=== PATIENT | female | born 1995 | race African-American/Black ===

== ENCOUNTER 2023-12-27 18:33 | Inpatient (IN) | payer MEDICARE, OTHER, SELFPAY ==
[2023-12-27] VITALS (19 sets, daily range): BP systolic 87–119; BP diastolic 56–80; BMI 17.8
--- NOTE | 2023-12-27 10:59 | ED.GENMED ---
History of Present Illness
General
Chief Complaint: Generalized Pain
Source: patient
Exam Limitations: none
Time Seen by Provider: 12/27/23 10:50
Nursing documentation reviewed up to this point in time: agreed with
Travel History
Have you had any contact with someone who has COVID-19?: No
Do you have any symptoms of coronavirus? Fever > 100 degrees, chills, cough, shortness of breath, sore throat, loss of taste or smell, muscle aches, or headache?: No
History of Present Illness
History of Present Illness:
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 She reports for the past week she has had pain in her chest back and bilateral hip she currently
does not have any Dilaudid left. She is followed by [facility]. He feels mildly short of breath and describe her heart pounding when she walks. She denies any fevers.
Past History
Past History
ED Past Medical History: Psychiatric (Anxiety) and Other (Sickle cell, PE, functionally asplenic)
ED Past Surgical History: Cholecystectomy and Orthopedic (Left shoulder surgery)
Social History
Tobacco: Non-smoker
Alcohol: None
Personal: Single
Living: with family
Employment: Other
Family History
Family History: Other
Review of Systems
Review of Systems
Allergies reviewed?: Yes
All Other Systems: ROS reviewed and negative except as documented in HPI and ROS
Constitutional: Denies fever, fatigue or chills
EENT: Reports no symptoms
Respiratory: Reports trouble breathing
Cardiac: Reports chest pain
ABD/GI: Reports no symptoms; Denies nausea or vomiting
: Reports no symptoms
Musculoskeletal: Reports back pain and other (hip pain b/l )
Skin: Reports no symptoms
Neurological: Reports no symptoms
Psychiatric: Reports no symptoms
Phy Exam
General Physical Exam
General Presentation: no apparent distress
General age: appears stated age
General Skin: warm and dry
General Habitus: normal
General Mental: alert
Cardiovascular Exam
Cardiovascular Exam: tachycardia
Pulmonary Exam
Pulmonary Exam: lungs clear and no respiratory distress
Neurological Exam
Neurological Exam: alert and oriented x3
Thai Coma Scale
Eye Opening: Spontaneous
Verbal Response: Oriented
Motor Response: Obeys Commands
GCS Total Score: 15
Musculoskeletal Exam
Musculoskeletal Exam: full ROM
Skin Exam
Skin Exam: normal color and warm/dry
Psychiatric Exam
Psychiatric Exam: normal mood/affect
Course
Orders/Labs/Results
Orders:
Orders
12/27/23 09:32
ECG [Electrocardiogram (*1)] Urgent
Reason for Study: Chest Pain
EKG- Treatment ONCE
12/27/23 11:09
0.9% Sodium Chloride 1000 ml [Nss] 1,000 ml IV BOLUS
Oxygen Therapy [O2 Therapy] [RESP] Urgent
Nasal Cannula Liter Flow: 2 LPM
Nasal Cup Liter Flow: 2 LPM
Non-Rebreather Mask: No
Partial Rebreather: No
Titrate/Wean O2 to maintain O2 sat greater than (%): 99
12/27/23 11:10
Cardiac Monitoring- Treatment ONCE
HYDROmorphone [Dilaudid] 1 mg IV NOW STA
12/27/23 11:37
CBC/With Diff [Complete Blood Count/With Diff] Urgent
CMP [Comprehensive Metabolic Panel] Urgent
Reticulocyte Count Urgent
12/27/23 13:28
CR Chest - 2 Views Urgent
Comment:
Reason For Exam: SOB, sickle cell
12/27/23 13:46
HYDROmorphone [Dilaudid] 1 mg IV NOW STA
04/18/24 15:58
HYDROmorphone [Dilaudid] 1 mg IV NOW STA
Abnormal Lab Results
12/27/23
11:37
WBC 12.7 H 10^3/uL
(4.8-10.8)
RBC 2.40 L 10^6/uL
(4.20-5.40)
Hgb 7.7 L g/dL
(12.0-16.0)
Hct 20.6 L* %
(37.0-47.0)
MCH 32.1 H pg
(27.0-31.0)
MCHC 37.4 H g/dL
(33.0-37.0)
RDW 24.0 H %
(11.5-14.5)
Abs Immat Gran (auto) 0.2 H 10^3/uL
(0-0.05)
Absolute Neuts (auto) 7.3 H 10^3/uL
(1.4-6.5)
Absolute Monos (auto) 1.9 H 10^3/uL
(0.1-0.6)
Immature Gran % 1.5 H %
(0-0.5)
Monocytes % 14.5 H %
(1.7-9.3)
Retic Count 10.7 H %
(0.4-2.8)
Sodium 133 L mmol/L
(135-145)
Carbon Dioxide 19 L mmol/L
(22-30)
BUN 6 L mg/dl
(7-17)
Creatinine 0.5 L mg/dL
(0.6-1.0)
Total Bilirubin 2.7 H mg/dl
(0.2-1.3)
AST 43 H U/L
(14-36)
Total Protein 8.3 H g/dl
(6.3-8.2)
12/27/23 11:37
12/27/23 11:37
Vital Signs
Initial and Last Documented VS:
Initial Vital Signs
Temp Pulse Resp BP Pulse Ox
98.7 F 130 20 116/80 96
12/27/23 09:28 12/27/23 09:28 12/27/23 09:28 12/27/23 09:28 12/27/23 09:28
Last Documented Vital Signs
Temp Pulse Resp BP Pulse Ox
98.7 F 98 15 106/56 94
12/27/23 09:28 12/27/23 14:00 12/27/23 14:00 12/27/23 15:00 12/27/23 13:45
MDM/Problems Addressed
Differential Diagnosis Includes:
Not limited to sickle cell exacerbation
MDM/Problems Addressed:
Patient is a 28-year-old female history of sickle cell disease presents to the ER complaining of pain. Patient complains of pain to bilateral hips back and chest. Flynn mildly short of breath however did not appear in any acute distress though she
describes feeling very uncomfortable patient reports her current medicine, Dilaudid from pain management is backordered. She was given fluids and pain medication here in the ER. She is anemic at 7.7 with an elevated reticulocyte count of 10.7
Patient was given several doses of pain medication here in the ER but does still feel uncomfortable will require admission Case discussed with ED physician.
Will plan for admission.
*Radiology
Radiology exam reviewed: radiology read reviewed
*Pulse Oximetry
Patient hypoxic: no
*EKG
Interpreted by ED Provider?: Yes
Heart Rate: 116
Rate: tachycardiac
Rhythm: sinus
*Critical Care Note
Total Time (30-74mins, 75-104mins- exclusive of procedures): Not Applicable
Data Reviewed
Review of Other/Old Records Reveals: Discharge Summary
ED Attending Note
-
Portions of this chart may have been created with voice recognition software.� Occasional wrong word or��sound alike� substitutions may have occurred due to the inherent limitations of voice recognition software.
Discharge Plan
Departure
Patient Disposition: Admit
Date of Disposition: 12/27/23
Time of Disposition: 17:25
Admit to: Med/Surg
Admit to doctor: hospitalist
Presentation/result/management discussed w/ accepting MD/DO: Hospitalist
Patient with high blood pressure during this ER visit?: No
Condition: Fair
Covid-19: Not Applicable
Discharge Problem:
Sickle cell anemia with crisis
Prescriptions:
No Action
folic acid 1 mg Tablet
1 mg PO QPM
Xarelto 15 mg tablet
15 mg PO QPM
Patient Comments:
12/27/2023, per pt., patient gets this filled at a [facility] in [place]; called pharmacy and they have no record of her filling Xarelto.
hydromorphone [Dilaudid] 4 mg tablet
4 mg PO Q6HPRN PRN (Reason: moderate to severe pain)
Patient Comments:
12/27/2023, per pt., she has not taken this med. for a few weeks because it is out of stock.
Women's Multivitamin 18 mg-400 mcg- 500 mg-50 mcg Tablet
1 tab PO DAILY
acetaminophen [Tylenol Extra Strength] 500 mg Tablet
1,000 mg PO TIDPRN PRN (Reason: mild pain)
Referrals:
NONE,* [Family Provider] -
Interventions
Interventions:
*Risk Screen - Suicide Last Done: 12/27/23 10:56
*Neglect/Abuse Screening Last Done: 12/27/23 10:56
ED- Fall Risk Assessment Last Done: 12/27/23 10:57
*ED COVID-19 Vaccine History Last Done: 12/27/23 10:56
Discharge Date and Time
Print Language: ICELANDIC
[2023-12-27] MEDS: DILAUDID 1 MG IV ×3 (11:37→16:03)
[2023-12-27] MEDS: NSS 1000 IV (11:38)
--- NOTE | 2023-12-27 11:59 | PHANOTE ---
12/27/2023, med rec tech, spoke to pt. to obtain their med. history; per pt., she takes Xarelto 15 mg QPM but could not confirm with pharmacy records and pt. has no [facility] records.
[2023-12-27 12:38] LABS: ALT (SGPT) 15 U/L (0-35); AST (SGOT) 43 U/L (14-36); Albumin 4.9 g/dl (3.5-5.0); Alkaline Phosphatase 59 U/L (38-126); Blood Urea Nitrogen 6 mg/dl (7-17); Calcium 9.4 mg/dl (8.4-10.2); Carbon Dioxide 19 mmol/L (22-30); Chloride 106 mmol/L (98-107); Estimated Creatinine Clearance 107 ml/min; Glucose 93 mg/dl (70-99); Potassium 3.9 mmol/L (3.5-5.1); Sodium 133 mmol/L (135-145); Total Bilirubin 2.7 mg/dl (0.2-1.3); Total Protein 8.3 g/dl (6.3-8.2); eGFR > 60.00
[2023-12-27 12:42] LABS: % Basophils 1.4 % (0-2); % Immature Granulocytes 1.5 % (0-0.5); % Lymphocytes 23.5 % (20.5-51.1); % Monocytes 14.5 % (1.7-9.3); % Neutrophils 57.1 % (42.2-75.2); Absolute Basophils 0.2 10^3/uL (0-0.2); Absolute Eosinophils 0.3 10^3/uL (0-0.7); Absolute Immature Granulocytes 0.2 10^3/uL (0-0.05); Absolute Monocytes 1.9 10^3/uL (0.1-0.6); Absolute Neutrophils 7.3 10^3/uL (1.4-6.5); Hemoglobin 7.7 g/dL (12.0-16.0); Mean Corp Hgb Conc. 37.4 g/dL (33.0-37.0); Mean Corpuscular Hgb 32.1 pg (27.0-31.0); Mean Corpuscular Volume 85.8 fL (81.0-99.0); Mean Platelet Volume 9.6 fL (7.4-10.4); Nucleated Red Blood Cells % 3.2 %; Platelet Count 265 10^3/uL (130-400); Reticulocyte Count 10.7 % (0.4-2.8); White Blood Cell Count 12.7 10^3/uL (4.8-10.8)
[2023-12-27 12:45] LABS: Hematocrit 20.6 % (37.0-47.0)
[2023-12-27 13:52] LABS: Anisocytosis 1+; Hypochromasia 2+; Normal RBC Morphology No; Ovalocytes Slight; Polychromasia Slight; Sickled Red Blood Cells 1+; Target Cells Slight
--- NOTE | 2023-12-27 18:05 | HPS.HSE ---
Addendum entered and electronically signed by Ev Oropeza MD 12/27/23 18:12:
Patient states that she has been compliant with Xarelto and not missing any doses. However as per pharmacy intake technician when she tried calling the pharmacy, they had no record of her filling the Xarelto.
Original Note:
Family Physician
-
Family Physician: * NONE
Chief Complaint
-
body pain
History of Present Illness
28-year-old female past medical history of sickle cell disease, chronic opiate use, pulmonary embolism on Xarelto, presenting to the hospital for sickle cell crisis and body pains. She has been having pain in her chest, back and bilateral hips and
shortness of breath with exertion.
Patient normally takes Dilaudid 4 mg every 6 hours prescribed by her pain medicine doctor. Due to Dilaudid being on backorder she was not able to get Dilaudid during her last appointment a week ago. She has been taking Tylenol ibuprofen for pain.
She denies any fevers or chills or cough.
Patient did not tolerate hydroxyurea in the past due to side effects.
Medical History
Past Medical History
Past Medical History: Reports Other ( sickle cell disease, chronic opiate use, pulmonary embolism on Xarelto)
Past Surgical History: Reports Other (Cholecystectomy and Orthopedic (Left shoulder surgery))
Social History
Tobacco: Non-smoker
Alcohol: Occasional
Drug: None
Family History
Family History: Other (Mother with thalassemia trait father with sickle cell trait))
Allergies / Home Medications
Allergies reflects when Allergies were last updated in [employer].
Home Medications with original date entered in [employer]
Allergy/Medication List:
Allergies
Allergy/AdvReac Type Severity Reaction Status Date / Time
cefepime Allergy Hives Verified 12/27/23 09:32
vancomycin Allergy Hives Verified 12/27/23 09:32
seafood Allergy Tongue Uncoded 12/27/23 09:32
Swelling
Home Medications
folic acid 1 mg tablet 1 mg PO QPM Supplement 10/19/22
hydromorphone 4 mg tablet (Dilaudid) 4 mg PO Q6HPRN PRN moderate to severe pain 07/11/23
rivaroxaban 15 mg tablet (Xarelto) 15 mg PO QPM Blood Clot Prevention/Tx 07/11/23
[id number] 18 mg-FA 400 mcg-calcium 500 mg-vit K 50 mcg tablet (Women's Multivitamin) 1 tab PO DAILY Supplement 09/07/23
acetaminophen 500 mg tablet (Tylenol Extra Strength) 1,000 mg PO TIDPRN PRN mild pain 12/27/23
Review of Systems
-
History Source: Patient
A 12 point ROS was completed and negative except as noted: Yes
Constitutional: Reports No Symptoms
EENT: Reports No Symptoms
Respiratory: Reports See HPI
Cardiac: Reports See HPI
Abdomen/GI: Reports No Symptoms
: Reports No Symptoms
Musculoskeletal: Reports No Symptoms
Skin: Reports No Symptoms
Neurological: Reports No Symptoms
Endocrine: Reports No Symptoms
Hematologic/Lymphatic: Reports No Symptoms
Psych: Reports No Symptoms
Physical Exam
Vital Signs
Vital Signs
Temp Pulse Resp BP Pulse Ox
98.7 F 110 15 114/73 92
12/27/23 09:28 12/27/23 17:20 12/27/23 14:00 12/27/23 17:20 12/27/23 17:20
Physical Exam
General: Well Developed, Well Nourished and No Apparent Distress
HEENT: NormoCephalic, Moist mucous membranes and Atraumatic
Respiratory: Clear
Cardiac: S1/S2 and Regular Rhythm; No Murmur or Rub
GI: Soft, Non Tender, Non Distended and Normal Bowel Sounds; No Organomegaly
Rectal: Deferred by Provider
Musculoskeletal: No Clubbing, No Cyanosis and No Edema
Skin: No Rash
Neuro: Nonfocal/grossly intact
Laboratory Results
-
12/27/23 11:37
12/27/23 11:37
Laboratory Results
Total Bilirubin 2.7 mg/dl (0.2-1.3) H 12/27/23 11:37
AST 43 U/L (14-36) H 12/27/23 11:37
ALT 15 U/L (0-35) 12/27/23 11:37
Alkaline Phosphatase 59 U/L (38-126) 12/27/23 11:37
Data Reviewed
-
Lab Data: Labs Reviewed by me
Old Records: Reviewed
Impression/Plan
-
IMPRESSION:
PLAN:
# Sickle cell crisis
# Acute on chronic anemia from sickle cell
-EKG shows sinus tachycardia
-Chest x-ray shows no active cardiopulmonary disease
-Hemoglobin 7.7
-IV fluids
-2 units of blood
-Oxygen as needed
-Tylenol, Dilaudid for pain
-Continue folic acid
History of pulmonary embolism
-Continue Xarelto which she has been compliant with
Full code
DVT prophylaxis�Xarelto
Regular diet
[2023-12-27] MEDS: DILAUDID 0.5 MG IV (19:03)
[2023-12-27] MEDS: DILAUDID 2 MG IV (21:14)
[2023-12-28] VITALS (19 sets, daily range): BP systolic 93–123; BP diastolic 54–73
[2023-12-28] MEDS: DILAUDID 2 MG IV ×5 (00:50→13:31)
[2023-12-28] MEDS: NSS 1000 IV ×2 (04:13→13:38)
[2023-12-28 06:48] LABS: % Basophils 1.2 % (0-2); % Eosinophils 4.6 % (0-6); % Immature Granulocytes 1.3 % (0-0.5); % Lymphocytes 26.4 % (20.5-51.1); % Monocytes 13.4 % (1.7-9.3); % Neutrophils 53.1 % (42.2-75.2); Absolute Basophils 0.2 10^3/uL (0-0.2); Absolute Eosinophils 0.6 10^3/uL (0-0.7); Absolute Immature Granulocytes 0.2 10^3/uL (0-0.05); Absolute Lymphocytes 3.4 10^3/uL (1.2-3.4); Absolute Monocytes 1.7 10^3/uL (0.1-0.6); Absolute Neutrophils 6.9 10^3/uL (1.4-6.5); Hematocrit 27.4 % (37.0-47.0); Mean Corp Hgb Conc. 36.9 g/dL (33.0-37.0); Mean Corpuscular Hgb 30.8 pg (27.0-31.0); Mean Corpuscular Volume 83.5 fL (81.0-99.0); Mean Platelet Volume 9.2 fL (7.4-10.4); Nucleated Red Blood Cells % 2.8 %; Platelet Count 298 10^3/uL (130-400); Red Blood Cell Count 3.28 10^6/uL (4.20-5.40); Red Cell Dist. Width 19.8 % (11.5-14.5)
[2023-12-28 06:59] LABS: Hemoglobin 10.1 g/dL (12.0-16.0)
[2023-12-28 07:00] LABS: ALT (SGPT) 11 U/L (0-35); AST (SGOT) 31 U/L (14-36); Albumin 4.3 g/dl (3.5-5.0); Alkaline Phosphatase 51 U/L (38-126); Blood Urea Nitrogen 7 mg/dl (7-17); Calcium 9.5 mg/dl (8.4-10.2); Carbon Dioxide 20 mmol/L (22-30); Chloride 102 mmol/L (98-107); Estimated Creatinine Clearance 107 ml/min; Glucose 93 mg/dl (70-99); Potassium 4.5 mmol/L (3.5-5.1); Sodium 133 mmol/L (135-145); Total Bilirubin 2.6 mg/dl (0.2-1.3); Total Protein 7.4 g/dl (6.3-8.2); eGFR > 60.00
[2023-12-28] MEDS: THERAGRAN 1 TABLET PO (07:21)
[2023-12-28 08:54] LABS: LDH 325 U/L (120-246)
--- NOTE | 2023-12-28 12:04 | CM ---
Addendum entered by Dainelle Moncada RN 12/28/23 12:23:
CM updated patient with [facility] information.
Original Note:
Cm was updated by hospitalist that patient was having a difficult time finding Dilaudid. Patient lives in [place]. Patient stated that [facility] did a 20 mile search for it and it was out. CM called [facility] in [place] and confirmed that they have
Dialudid available. CM updated hospitalist with pharmacy.
--- NOTE | 2023-12-28 12:08 | CON.ONC ---
Documented by User: Kiana Dawn MD, Resident 12/28/23 13:13
Impression
Impression
28 yo F with PMHx of sickle cell disease and opiates presents to the Emergency in pain crisis after running out of home dilaudid.
Anemia
Pain Crisis
Plan
Plan
Anemia -
secondary to hemolysis.
elevated LDH, serum bilirubin, retic counts
Hb - 7.7 12/26, received 2 units of PRBC - Hb - 10.1 12/27.
Pain crisis -
received hydration, IV Diluadid. Currently pain well controlled.
Patient is stable to go home on pain medications.
hematology follow up appointment scheduled for january 28.
Will follow up on outpatient basis.
Patient History
History of Present Illness
Dagmar, 28 yo women, diagnosed with sickle cell anemia, presents to the hospital with b/l hip pain, that travels around her abdomen, and now has chest pain as well at the time of admission. She reports to have some SOB on exertion initially at the
time of admission, but currently she denies chest pain, SOB, palpitations, fever, chills, non healing ulcers. However she reports to have difficulty bearing weight on her left hip upon standing, and her pains to be sharp and shooting in both hips,
left > right. Reports joint aches and myalgias.
Patient sees [facility] for pain management, ran out of prescription Dilaudid, and was prescribed oxymorphone. No pain medications at home.
Hematology - [facility], Dr. Jones, follow up in january.
Could not stand hydroxyurea due to adverse events.
Past-Medical/Surgical History
PMHx - Sickle cell disease, chronic opioid use, PE x 3 episodes , started on xaretlo in 2019, compliant with xarelto.
PSHx - Cholecystectomy, and rotator cuff repair
Patient Medication
�Medication �Instructions �Recorded �Confirmed �Last Taken �Type
folic acid 1 mg tablet 1 mg PO QPM Supplement 10/19/22 12/27/23 12/26/23 History
hydromorphone 4 mg tablet 4 mg PO Q6HPRN PRN moderate to 07/11/23 12/27/23 09/07/23 History
(Dilaudid) severe pain
rivaroxaban 15 mg tablet (Xarelto) 15 mg PO QPM Blood Clot 07/11/23 09/07/23 12/26/23 History
Prevention/Tx
[id number]-srs-tvex 18 mg-FA 400 1 tab PO DAILY Supplement 09/07/23 12/27/23 12/26/23 History
mcg-calcium 500 mg-vit K 50 mcg
tablet (Women's Multivitamin)
acetaminophen 500 mg tablet 1,000 mg PO TIDPRN PRN mild pain 12/27/23 12/27/23 2 Days Ago History
(Tylenol Extra Strength) ~12/25/23
Active Medications
Generic Name Dose Route Start Last Admin
Trade Name Freq PRN Reason Stop Dose Admin
Acetaminophen 1,000 mg 12/28/23 00:56
Acetaminophen 500 Mg Tablet PO 01/25/24 00:55
TIDPRN PRN
mild pain
Folic Acid 1 mg 12/28/23 18:00
Folic Acid 1 Mg Tablet PO 01/25/24 17:59
QPM MARICRUZ
Hydromorphone HCl 2 mg 12/27/23 20:53 12/28/23 10:41
Hydromorphone 1 Mg/Ml Carpuject IV 01/10/24 20:52 2 mg
Q3HPRN PRN Administration
severe pain
Sodium Chloride 1,000 mls @ 80 mls/hr 12/28/23 00:56 12/28/23 04:13
Nss IV 1,000 mls
[id number] MARICRUZ Administration
Multivitamins Therapeutic 1 tablet 12/28/23 08:00 12/28/23 07:21
Multivitamin Tablet PO 01/25/24 07:59 1 tablet
DAILY MARICRUZ Administration
Rivaroxaban 15 mg 12/28/23 18:00
Rivaroxaban 15 Mg Tablet PO 01/25/24 17:59
QPM MARICRUZ
Review of Systems
-
History Source: Patient
Constitutional: Reports Fatigue and Other (itching)
EENT: Reports No Symptoms
Respiratory: Reports No Symptoms
Cardiac: Reports No Symptoms
GI: Reports Abdominal Pain and Pain
Breast: Reports No Symptoms
: Reports No Symptoms
Musculoskeletal: Reports Joint Pain, Muscle Pain, Arthralgias, Myalgias, NSAID Use and Other (b/l hip pain)
Skin: Reports Itching
Neuro: Reports No Symptoms
Endocrine: Reports No Symptoms
Hematologic/Lymphatic: Reports No Symptoms
Allergy / Immunology: Reports No Symptoms
Psych: Reports No Symptoms
Physical Exam
-
General: Well Developed and Well Nourished
HEENT: Moist Mucous Membranes
Cardiology: S1, S2 and No Murmur
Pulmonary: Clear and Other (no wheezes, rales and ronchi)
GI: Soft, Normal Bowel Sounds and No Organomegaly
Musculoskeletal: No Clubbing and No Edema
Extremities: Pulses Present
Skin: Warm
Psych: Calm
Labs
Lab Results
WBC 13.0 10^3/uL (4.8-10.8) H 12/28/23 06:16
RBC 3.28 10^6/uL (4.20-5.40) L 12/28/23 06:16
Hgb 10.1 g/dL (12.0-16.0) L D 12/28/23 06:16
Hct 27.4 % (37.0-47.0) L 12/28/23 06:16
MCV 83.5 fL (81.0-99.0) 12/28/23 06:16
MCH 30.8 pg (27.0-31.0) 12/28/23 06:16
MCHC 36.9 g/dL (33.0-37.0) 12/28/23 06:16
RDW 19.8 % (11.5-14.5) H 12/28/23 06:16
Plt Count 298 10^3/uL (130-400) 12/28/23 06:16
MPV 9.2 fL (7.4-10.4) 12/28/23 06:16
Abs Immat Gran (auto) 0.2 10^3/uL (0-0.05) H 12/28/23 06:16
Absolute Neuts (auto) 6.9 10^3/uL (1.4-6.5) H 12/28/23 06:16
Absolute Lymphs (auto) 3.4 10^3/uL (1.2-3.4) 12/28/23 06:16
Absolute Monos (auto) 1.7 10^3/uL (0.1-0.6) H 12/28/23 06:16
Absolute Eos (auto) 0.6 10^3/uL (0-0.7) 12/28/23 06:16
Absolute Basos (auto) 0.2 10^3/uL (0-0.2) 12/28/23 06:16
Immature Gran % 1.3 % (0-0.5) H 12/28/23 06:16
Neutrophils % 53.1 % (42.2-75.2) 12/28/23 06:16
Lymphocytes % 26.4 % (20.5-51.1) 12/28/23 06:16
Monocytes % 13.4 % (1.7-9.3) H 12/28/23 06:16
Eosinophils % 4.6 % (0-6) 12/28/23 06:16
Basophils % 1.2 % (0-2) 12/28/23 06:16
Creatinine 0.5 mg/dL (0.6-1.0) L 12/28/23 06:16
Vital Signs
Vital Signs
Temp Pulse Resp BP Pulse Ox
98.1 F 106 16 108/67 93
12/28/23 04:07 12/28/23 11:15 12/28/23 11:15 12/28/23 10:42 12/28/23 11:00

Documented by User: Gautam Jones MD 12/28/23 14:34
Plan
Plan
Anemia -
secondary to hemolysis.
elevated LDH, serum bilirubin, retic counts
Hb - 7.7 12/26, received 2 units of PRBC - Hb - 10.1 12/27.
Pain crisis -
received hydration, IV Diluadid. Currently pain well controlled.
Patient is stable to go home on pain medications.
hematology follow up appointment scheduled for january 28.
Will follow up on outpatient basis.
Hematology Addendum:
Patient seen and evaluated and agree w/ medical advisor note and plan as outlined
-sickle cell disease - mild pain crisis - feels better after transfusion
-discussed w/ hospitalist - w/ pain improved -consideration could be given to discharge w/ outpt f/u
-pt has outppt f/u heme visit scheduled for January
-pt has outpt paint stripper
== END 2023-12-28 14:23 | disposition home or self-care (01) | DRG 811 ==
LOC: ED 18:33
PROVIDERS: Nurse Practitioner; ADMITTING PHYSICIAN Hospitalist; ATTENDING PHYSICIAN Internal Medicine; CONSULT PHYSICIAN Internal Medicine Hematology & Oncology; EMERGENCY PHYSICIAN Emergency Medicine
PROC: 30233N1 Transfusion of Nonautologous Red Blood Cells into Peripheral Vein, Percutaneous Approach (ICD-10-PCS; 2023-12-27)
DX: D57.1 Sickle-cell disease without crisis (principal); I26.99 Other pulmonary embolism without acute cor pulmonale; Z79.891 Long term (current) use of opiate analgesic; Z95.828 Presence of other vascular implants and grafts
CPT/HCPCS: 71046; 80053; 83615; 85025; 85045; 86850; 86900; 86901; 86920; 93005; 96361; 96374; 96376; 99285; P9016

== ENCOUNTER 2024-02-08 10:25 | Emergency (ER) | payer MEDICARE, OTHER, SELFPAY ==
[2024-02-08 10:40] VITALS: BP 113/73
--- NOTE | 2024-02-08 11:56 | ED.GENMED ---
History of Present Illness
General
Chief Complaint: Musculo-Skeletal Complaint
Source: patient and records
Exam Limitations: none
Time Seen by Provider: 02/08/24 11:38
Nursing documentation reviewed up to this point in time: agreed with
Travel History
Have you had any contact with someone who has COVID-19?: No
Do you have any symptoms of coronavirus? Fever > 100 degrees, chills, cough, shortness of breath, sore throat, loss of taste or smell, muscle aches, or headache?: No
History of Present Illness
History of Present Illness:
29-year-old female history of sickle cell disease followed by Dr. 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
has pain to her back also some cramping in her abdomen had her period last week which was shorter than usual does not believe she is , has had orthopedic procedure to her left shoulder had a cholecystectomy does not believe she has had any
fevers she has a port in her right anterior chest wall
Past History
Past History
ED Past Medical History: Psychiatric (Anxiety) and Other (Sickle cell, PE, functionally asplenic)
ED Past Surgical History: Cholecystectomy and Orthopedic (Left shoulder surgery)
Social History
Tobacco: Non-smoker
Alcohol: None
Drug: None
Personal: Single
Living: with family
Employment: Other
Family History
Family History: Other (ss)
Review of Systems
Review of Systems
All Other Systems: Not applicable
Constitutional: Denies fever or fatigue
Respiratory: Reports no symptoms
Cardiac: Reports no symptoms
ABD/GI: Reports abdominal pain and diarrhea
Musculoskeletal: Reports joint pain and muscle pain
Phy Exam
Physical Exam
Physical Exam:
Physical Exam
General: no apparent distress, not acutely ill
Neck: No jaundice
Heart: s1/s2 regular rate and rhythm, no murmur. equal radial pulses.
Lungs: no acute respiratory distress. clear bilaterally
Abdomen: Nontender
Neuro: alert and oriented. no focal neurological deficits
Skin: no rash
Psychiatric: well kept. interactive and cooperative
Extremities: no edema.
Course
Orders/Labs/Results
Orders:
Orders
02/08/24 11:43
0.9% Sodium Chloride 1000 ml [Nss] 1,000 ml IV BOLUS
HYDROmorphone [Dilaudid] 2 mg IV NOW STA
Test Result ONCE
02/08/24 12:04
CBC/With Reticulocyte Count Urgent
Comprehensive Metabolic Panel Urgent
HCG, Serum Qualitative Screen Urgent
02/08/24 13:20
HYDROmorphone [Dilaudid] 2 mg IV NOW STA
02/08/24 13:21
HYDROmorphone [Dilaudid] 2 mg IV NOW STA
02/08/24 14:00
Heparin Pf [Heparin Lock Flush] 500 unit .ROUTE .STK-MED ONE
Heparin Pf [Heparin Lock Flush] 500 unit IV NOW ONE
Abnormal Lab Results
02/08/24
12:04
RBC 2.66 L 10^6/uL
(4.20-5.40)
Hgb 8.4 L g/dL
(12.0-16.0)
Hct 23.1 L %
(37.0-47.0)
MCH 31.6 H pg
(27.0-31.0)
RDW 19.6 H %
(11.5-14.5)
Abs Immat Gran (auto) 0.1 H 10^3/uL
(0-0.05)
Absolute Monos (auto) 1.0 H 10^3/uL
(0.1-0.6)
Monocytes % 10.8 H %
(1.7-9.3)
Retic Count 12.5 H %
(0.4-2.8)
BUN 3 L mg/dl
(7-17)
Creatinine 0.4 L mg/dL
(0.6-1.0)
Total Bilirubin 2.6 H mg/dl
(0.2-1.3)
02/08/24 12:04
02/08/24 12:04
Vital Signs
Initial and Last Documented VS:
Initial Vital Signs
Temp Pulse Resp BP Pulse Ox
98.9 F 100 20 113/73 95
02/08/24 10:40 02/08/24 10:40 02/08/24 10:40 02/08/24 10:40 02/08/24 10:40
Last Documented Vital Signs
Temp Pulse Resp BP Pulse Ox
98.9 F 89 20 106/68 95
02/08/24 10:40 02/08/24 14:36 02/08/24 14:36 02/08/24 14:00 02/08/24 14:36
MDM/Problems Addressed
Differential Diagnosis Includes:
Sickle cell flare anemia, viral syndrome, no fever
MDM/Problems Addressed:
Body aches myalgias sickle cell flare
Chronic conditions affecting care:
Sickle cell disease
Chronic conditions affecting care: Previous abdomnial surgery
Acute Exacerbation and/or Progression of Chronic Illness:
Sickle cell
Acute Exacerbation and/or Progression of Chronic Illness: Previous abdomnial surgery
*Critical Care Note
Total Time (30-74mins, 75-104mins- exclusive of procedures): Not Applicable
Update Note
Update Note:
Update labs are noted hemoglobin about her baseline reticulocyte count is noted she is not
Prior records reviewed had been on some higher doses of narcotics previously when she was admitted did require transfusion previously apparently is prescribed Xarelto for prior PE will confirm that she is taking
1 PM, prior records reviewed previous admission she was managed with 4 mg of Dilaudid p.o. 4 mg IV for breakthrough, today after 2 mg IV she is feeling a bit better still 7 out of 10 pain she reports, she does think she can likely go home after
another full dose of her breakthrough dose which I will order, she states she has prescription at home for her p.o. meds
ED Attending Note
-
Portions of this chart may have been created with voice recognition software.� Occasional wrong word or��sound alike� substitutions may have occurred due to the inherent limitations of voice recognition software.
Discharge Plan
Departure
Patient Disposition: Home (Routine Discharge)
Date of Disposition: 02/08/24
Time of Disposition: 13:27
Patient with high blood pressure during this ER visit?: No
Condition: Good
Discharge Problem:
Sickle cell anemia with crisis, Acute sickle cell crisis
Instructions: Sickle cell disease pain in adults - Discharge instructions
Prescriptions:
No Action
folic acid 1 mg Tablet
1 mg PO QPM
Women's Multivitamin 18 mg-400 mcg- 500 mg-50 mcg Tablet
1 tab PO DAILY
acetaminophen [Tylenol Extra Strength] 500 mg Tablet
1,000 mg PO TIDPRN PRN (Reason: mild pain)
hydromorphone [Dilaudid] 4 mg tablet
4 mg PO Q6HPRN PRN (Reason: moderate to severe pain) Qty: 30 0RF
Xarelto 15 mg tablet
15 mg PO QPM Qty: 30 0RF
Referrals:
Gautam Jones MD [Family Provider] -
Interventions
Interventions:
*Risk Screen - Suicide Last Done: 02/08/24 12:17
*General Assessment Last Done: 02/08/24 12:17
*Neglect/Abuse Screening Last Done: 02/08/24 12:17
ED- Fall Risk Assessment Last Done: 02/08/24 14:36
*ED COVID-19 Vaccine History Last Done: 02/08/24 10:49
*Nursing Disposition Last Done: 02/08/24 14:36
ED-Musculoskeletal Assessment Last Done: 02/08/24 12:22
Discharge Date and Time
Discharge Date/Time: 02/08/24 14:39
Print Language: BULGARIAN
[2024-02-08] MEDS: NSS 1000 IV (12:14)
[2024-02-08] MEDS: DILAUDID 2 MG IV ×3 (12:14→13:55)
[2024-02-08 12:17] VITALS: BP 106/73; BMI 18.7
[2024-02-08 12:25] LABS: % Basophils 1.2 % (0-2); % Eosinophils 0.9 % (0-6); % Immature Granulocytes 0.5 % (0-0.5); % Lymphocytes 23.5 % (20.5-51.1); % Monocytes 10.8 % (1.7-9.3); % Neutrophils 63.1 % (42.2-75.2); Absolute Basophils 0.1 10^3/uL (0-0.2); Absolute Eosinophils 0.1 10^3/uL (0-0.7); Absolute Immature Granulocytes 0.1 10^3/uL (0-0.05); Absolute Lymphocytes 2.2 10^3/uL (1.2-3.4); Absolute Neutrophils 5.8 10^3/uL (1.4-6.5); Hematocrit 23.1 % (37.0-47.0); Hemoglobin 8.4 g/dL (12.0-16.0); Mean Corp Hgb Conc. 36.4 g/dL (33.0-37.0); Mean Corpuscular Hgb 31.6 pg (27.0-31.0); Mean Corpuscular Volume 86.8 fL (81.0-99.0); Mean Platelet Volume 8.9 fL (7.4-10.4); Nucleated Red Blood Cells % 4.4 %; Platelet Count 325 10^3/uL (130-400); Red Blood Cell Count 2.66 10^6/uL (4.20-5.40); Red Cell Dist. Width 19.6 % (11.5-14.5); Reticulocyte Count 12.5 % (0.4-2.8); White Blood Cell Count 9.2 10^3/uL (4.8-10.8)
[2024-02-08 12:33] LABS: HCG, Serum Qualitative Screen Negative
[2024-02-08 12:34] LABS: ALT (SGPT) < 10 U/L (0-35); AST (SGOT) 27 U/L (14-36); Albumin 4.6 g/dl (3.5-5.0); Alkaline Phosphatase 57 U/L (38-126); Blood Urea Nitrogen 3 mg/dl (7-17); Calcium 9.4 mg/dl (8.4-10.2); Carbon Dioxide 23 mmol/L (22-30); Chloride 107 mmol/L (98-107); Estimated Creatinine Clearance 108 ml/min; Glucose 99 mg/dl (70-99); Potassium 3.6 mmol/L (3.5-5.1); Sodium 139 mmol/L (135-145); Total Bilirubin 2.6 mg/dl (0.2-1.3); eGFR > 60.00
[2024-02-08 13:00] VITALS: BP 103/70
[2024-02-08 14:00] VITALS: BP 106/68
== END 2024-02-08 14:39 | disposition home or self-care (01) ==
LOC: EMR 10:25
PROVIDERS: EMERGENCY PHYSICIAN Emergency Medicine; FAMILY PHYSICIAN Internal Medicine Hematology & Oncology
DX: D57.00 Hb-SS disease with crisis, unspecified (principal); Z86.711 Personal history of pulmonary embolism; Z90.49 Acquired absence of other specified parts of digestive tract; F41.9 Anxiety disorder, unspecified
CPT/HCPCS: 99283; 96374; 96375; 96376; 96361; 80053; 84703; 85025; 85045